=== PATIENT | male | born 2000 | race American Indian/Alaskan Native ===

== ENCOUNTER → 2024-12-28 | Emergency (ER) | payer OTHER ==
[~2024-12-28] VITALS: Ht 149.9 cm; Wt 38.6 kg
[~2024-12-28] MED LIST: KETO10TA2 PO; KETOROLAC TROMETHAMINE 30 MG VIAL IM ONE; KETOROLAC TROMETHAMINE 30 MG VIAL ONE; NORFLEX100MG PO; ORPHENADRINE CITRATE 30 MG/ML AMPUL IM ONE; ORPHENADRINE CITRATE 30 MG/ML AMPUL ONE; TOPROL XL25 M1 PO
[2024-12-28 22:07] LABS: BASO % 0.6 % (0.1-1.2); EOS # 0.07 (0.04-0.54); EOS % 1.0 % (0.7-7.0); LYMPH # 1.02 (1.18-3.74); LYMPH % 14.8 % (19.3-53.1); MEAN PLATELET VOLUME 12.80 fl (9.4-12.4); MONO # 0.67 (0.24-0.82); MONO % 9.7 % (4.7-12.5); NEUT # 5.08 (1.56-6.13); NEUT % 73.6 % (34.0-71.1); RED CELL DISTRIBUTION WIDTH 12.5 % (11.6-14.4)
[2024-12-28 22:26] LABS: BUN CREA RATIO 14 (7.0-25.0); CREATININE SERUM 1.09 mg/dL (0.70-1.30); GFR 83.83; GLUCOSE FASTING 68 mg/dL (65-100); OSMOLALITY SERUM 282 MOSM/KG (275-295); PHOSPHOKINASE CREATININE 75 U/L (39-308)
[2024-12-28 22:28] LABS: CKMB < 1.0 NG/ML (0.5-3.6)
[2024-12-28 23:46] VITALS: BP 119/81; O2SAT 100
== END | disposition home or self-care (01) ==
LOC: ER 19:41
PROVIDERS: General Practice
DX: R07.89 Other chest pain (principal); I10 Essential (primary) hypertension; Z91.013 Allergy to seafood; Q87.19 Other congenital malformation syndromes predominantly associated with short stature